=== PATIENT | female | born 1985 | race Asian ===

== ENCOUNTER 2019-02-18 07:15 | Emergency (ER) | payer BC ==
[~2019-02-18] VITALS: Ht 165.1 cm; Wt 64.9 kg
[2019-02-18 07:21] VITALS: BP 121/78; TEMP 97.5
[2019-02-18 07:57] LABS: PLATELET COUNT 231 K/uL (152-353)
[2019-02-18 07:58] LABS: POTASSIUM 3.7 mmol/L (3.6-5.2)
[2019-02-18 08:20] LABS: PARTIAL THROMBOPLASTIN TIME 24.9 SECONDS (24.5-33.6)
== END 2019-02-18 11:32 | disposition still patient (30) ==
LOC: ED 07:15
PROVIDERS: Hospitalist
DX: D50.9 Iron deficiency anemia, unspecified (principal); N83.201 Unspecified ovarian cyst, right side; N94.89 Other specified conditions associated with female genital organs and menstrual cycle; G44.209 Tension-type headache, unspecified, not intractable; R10.30 Lower abdominal pain, unspecified
CPT/HCPCS: 36415; 80053; 81000; 81025; 83690; 85027; 85610; 85730; 96360; 96375; 99284; J1200; J1885; J2405; Q9963